=== PATIENT | male | born 1945 | race American Indian/Alaskan Native ===

== ENCOUNTER 2018-05-26 18:13 | Emergency (ER) | payer OTHER, MEDICARE ==
[2018-05-26] MEDS ORDERED: ULTRAM PO ONE (23:56)
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
[2018-05-27 00:13] VITALS: BP 169/91
== END 2018-05-27 00:26 | disposition home or self-care (01) ==
LOC: ED 18:13
DX: M54.5 Low back pain (principal); M25.562 Pain in left knee; V49.49XA Driver injured in collision with other motor vehicles in traffic accident, initial encounter; Y93.89 Activity, other specified; Y92.89 Other specified places as the place of occurrence of the external cause; Y99.8 Other external cause status
CPT/HCPCS: 82962